=== PATIENT | male | born 1990 | race Two or more races ===

== ENCOUNTER 2018-10-12 09:57 | Inpatient (IN) | payer OTHER ==
[~2018-10-12] VITALS: Ht 165.1 cm; Wt 88.5 kg
[2018-10-12] VITALS (13 sets, daily range): BP systolic 112–136; BP diastolic 62–79
[~2018-10-12 09:57] MED LIST: ceFAZolin sod 2 GM in D5W 110 ML IVPB ONE
--- NOTE | 2018-10-12 10:44 | Pre-Procedure Note/Attestation ---
Pre-Procedure Note/Attestation Complete Prior to Procedure Planned Procedure: right Procedure Narrative: Right L5-S1 hemilaminotomy foraminotomy microdiscectomy Indications for Procedure Pre-Operative Diagnosis: L5s1 herniation Attestation I attest that I discussed the nature of the procedure; its benefits; risks and complications; and alternatives (and the risks and benefits of such alternatives ), prior to the procedure, with the patient (or the patient's legal premium service representative). I attest that, if there was a reasonable possibility of needing a blood transfusion, the patient (or the patient's legal premium service representative) was given the [facility] standardized written summary, pursuant to the Francisco Hosmer Blood Safety Act ([place] Health and Safety Code # 1645, as amended). I attest that I re-evaluated the patient just prior to the surgery and that there has been no change in the patient's H&P, except as documented below: Dionte Jo MD Oct 12, 2018 10:44
[2018-10-12] MEDS ORDERED: Metoclopramide 10mg/2ml Inj IVP PRN ×2 (10:45→14:45)
[2018-10-12] MEDS ORDERED: Chloraseptic Spray 20mL Bottle ORAL PRN (10:45)
[2018-10-12] MEDS ORDERED: Morphine Sulfate 4mg/ml Inj (IV USE ONLY) IV PRN (10:45)
[2018-10-12] MEDS ORDERED: HYDROcodone/Acetamin 5/325 tab ORAL PRN (10:45)
[2018-10-12] MEDS ORDERED: HYDROmorphone 1mg/ml Carpuject IVP PRN (10:45)
[2018-10-12] MEDS ORDERED: Naloxone 0.4mg/ml Inj IVP PRN (10:45)
[2018-10-12] MEDS ORDERED: Milk of Magnesia 30ml Ud ORAL PRN (10:45)
[2018-10-12] MEDS ORDERED: HYDROcodone/Acetamin 7.5/325 tab ORAL PRN ×2 (10:45)
[2018-10-12] MEDS ORDERED: Morphine Sulfate 2mg/ml Inj(IV/IM USE ONLY) IV PRN (10:45)
--- NOTE | 2018-10-12 10:45 | Brief Operative Note ---
Immediate Post Operative Note Operative Note Chief Complaint: back pain and radiculopathy right sided in an s1 distribution Pre-op Diagnosis: L5s1 herniation Procedure: Right L5-S1 hemilaminotomy foraminotomy microdiscectomy Post-op Diagnosis: same as pre-op Findings: consistent w/pre-op dx studies Surgeon: Sandro Finisher Merchant Products: Dakota Anesthesiologist: DOUG Anesthesia: general Specimen: none Complications: none Condition: stable Fluids: iv Estimated Blood Loss: minimal Drains: none Implant(s) used?: No Dionte Jo MD Oct 12, 2018 10:45
[2018-10-12] MEDS ORDERED: NKM (10:56)
[2018-10-12] MEDS ORDERED: fentaNYL 100 mcg/2 mL IV ONE (11:29)
[2018-10-12] MEDS ORDERED: Midazolam 2mg/2ml Inj ONE (11:29)
[2018-10-12] MEDS ORDERED: Lidocaine 1% MPF 10mg/ml 5ml ONE (11:31)
[2018-10-12] MEDS ORDERED: Ropivacaine 5mg/ml Vial 30ml INJ ONE ×2 (12:28→13:35)
[2018-10-12] MEDS ORDERED: Gelfoam Size TOPIC ONE (12:28)
[2018-10-12] MEDS ORDERED: Thrombin 5000 units TOPIC ONE ×2 (12:28→13:35)
[2018-10-12] MEDS ORDERED: Bupivacaine w/Epi 0.5% 30ml Vial INJ ONE (12:29)
[2018-10-12] MEDS ORDERED: Zemuron 50mg/5ml Inj IV ONE (12:29)
[2018-10-12] MEDS ORDERED: Bacitracin 50000 Units Vial ONE (12:29)
[2018-10-12] MEDS ORDERED: NS Irrig 1000ml ONE (13:30)
[2018-10-12] MEDS ORDERED: LR 1000ml ONE (13:30)
[2018-10-12] MEDS ORDERED: Neostigmine 1mg/ml 10ml Inj ONE (13:30)
[2018-10-12] MEDS ORDERED: Propofol 1,000mg/ 100ml btl IV ONE (13:30)
[2018-10-12] MEDS ORDERED: Sterile Water Irrig 1000ml IRRIG ONE (13:30)
[2018-10-12] MEDS ORDERED: NS Irrig 1000ml IRRIG ONE (13:35)
[2018-10-12] MEDS ORDERED: Morphine Sulfate 10mg/ml Inj ONE (14:31)
[2018-10-12] MEDS ORDERED: Sodium Chloride 10ml vial INJ ONE (14:32)
[2018-10-12] MEDS ORDERED: Glycopyrrolate 0.2mg/ml 1ml Vial ONE (14:32)
[2018-10-12] MEDS ORDERED: Ketorolac 30mg Inj ONE (14:32)
--- NOTE | 2018-10-12 14:42 | Anethesia Preoperative Eval ---
Anesthesia Pre-op PMH/ROS General Date of Evaluation: Oct 12, 2018 Time of Evaluation: 13:20 Anesthesiologist: Villa ASA Score: ASA 2 Mallampati Score Class I : Soft palate, uvula, fauces, pillars visible Class II: Soft palate, uvula, fauces visible Class III: Soft palate, base of uvula visible Class IV: Only hard plate visible Mallampati Classification: Class II Surgeon: Sandro Diagnosis: Lumbar radiculopathy Surgical Procedure: L5-S1 laminotomy Anesthesia History: none Family History: no anesthesia problems Allergies: Coded Allergies: No Known Allergies (Unverified , 10/12/18) Medications: see eMAR Patient NPO?: Yes NPO Date: Oct 11, 2018 NPO Time: 2100 Past Medical History Cardiovascular: Denies: HTN, CAD, NM, valve dz, arrhythmia, other Pulmonary: Denies: asthma, COPD, ELVIS, other Gastrointestinal/Genitourinary: Reports: GERD - mild; Denies: CRI, ESRD, other Neurologic/Psychiatric: Denies: dementia, CVA, depression/anxiety, TIA, other Endocrine: Denies: DM, hypothyroidism, steroids, other HEENT: Denies: cataract (L), cataract (R), glaucoma, [place] (L), [place] (R), other Hematology/Immune: Denies: anemia, DVT, bleeding disorder, other Musculoskeletal/Integumentary: Denies: OA, RA, DJD, DDD, edema, other Other: other - overweight PMH Narrative: as above PSxH Narrative: None Anesthesia Pre-op Phys. Exam Physician Exam Last Vital Signs Date Time Temp Pulse Resp B/P (MAP) Pulse Ox O2 Delivery O2 Flow Rate FiO2 10/12/18 11:01 Room Air 10/12/18 10:49 97.2 53 18 126/74 (91) 98 Constitutional: NAD Neurologic: CN 2-12 intact Cardiovascular: RRR, no M/R/G Respiratory: CTA Gastrointestinal: S/NT/ND Airway Exam Mallampati Score: Class II MO: full Neck: flexible ROM: full Teeth: intact Dentures: no upper, no lower Anesthesia Pre-op A/P Labs see chart Studies Pre-op Studies: EKG - NSR, CXR - WNL Risk Assessment & Plan Assessment: ASA 2 Plan: GA with ETT prone position neuromonitoring, PONV prevention Status Change Before Surgery: No Pre-Antibiotics Drug: Ancef 2gr. Given Within 1 Hr of Incision: Yes Time Given: 14:05 Fahad Driver MD Oct 12, 2018 14:42
[2018-10-12] MEDS ORDERED: LR 1000ml 1,000 ML IVLG SCH (14:43)
[2018-10-12] MEDS ORDERED: Meperidine 50mg/ml Inj(FOR RIGORS ONLY) IV PRN (14:45)
[2018-10-12] MEDS ORDERED: Acetaminophen (Non formulary) 100 ML IV ONE (14:45)
[2018-10-12] MEDS ORDERED: Hydromorphone 0.5mg/0.5ml inj IVP PRN (14:45)
[2018-10-12] MEDS ORDERED: Ketorolac 30mg Inj IV PRN (14:45)
[2018-10-12] MEDS ORDERED: DiphenhydrAMINE 50mg/ml Inj IVP PRN (14:45)
--- NOTE | 2018-10-12 15:38 | Immediate Post-Op Evaluation ---
Immediate Post-Op Evalulation Immediate Post-Op Evalulation Procedure: Laminotomy L5-S1 with decompression Date of Evaluation: Oct 12, 2018 Time of Evaluation: 15:37 IV Fluids: 1000 Blood Products: none Estimated Blood Loss: 50 Urinary Output: none Blood Pressure Systolic: 112 Blood Pressure Diastolic: 56 Pulse Rate: 64 Respiratory Rate: 20 O2 Sat by Pulse Oximetry: 99 Temperature (Fahrenheit): 97.5 Pain Score (1-10): 2 Nausea: No Vomiting: No Complications none Patient Status: reacts, patent, extubated, none Hydration Status: adequate Fahad Driver MD Oct 12, 2018 15:38
--- NOTE | 2018-10-12 16:48 | Diagnostic Imaging Report ---
. INDICATION: Pain, intraoperative TECHNIQUE: Intraoperative imaging Fluoroscopy time: 2.9 seconds Total dose: 0.46709 mGym2 Total number of images: One COMPARISON: None FINDINGS: Single lateral images demonstrate surgical tool projected over what are presumably L5 and the upper sacrum. IMPRESSION: Intraoperative imaging, as described
--- NOTE | 2018-10-12 17:25 | NUR ---
NURSE NOTES:RECEIVED FR.PACU BY BED S/PL5-[id number],FORAMINOTOMY,MICRODISCECTOMY,/OX4,MOVING ALL EXTREMITIES,BACK DRSNG,C/D/I.ICE PACK ON.O2 AT 3 LTERS N/C .PAIN LEVEL 3/10(WAS JUST MEDICATED PRIOR TO COMING TO FLOOR)PLAN OF CARE DISCUSSED VERBALIZED UNDERSTANDING.
[2018-10-12] MEDS: Docusate 100mg cap ORAL SCH (18:00)
[2018-10-12] MEDS: Dexamethasone 4mg/ml vial IVP SCH ×2 (18:21→23:24)
[2018-10-12] MEDS: NS w/KCl 20mEq 1,000 ML IV SCH (18:21)
--- NOTE | 2018-10-12 19:15 | NUR ---
HAND-OFF: Report given to ODELL ZUNIGA.PATIENT STABLE.
--- NOTE | 2018-10-12 19:26 | Cardiology Progress Note ---
Assessment/Plan Assessment/Plan doing well dvt ppx IS ambualte home soon [id number] Objective Last 24 Hour Vital Signs Date Time Temp Pulse Resp B/P (MAP) Pulse Ox O2 Delivery O2 Flow Rate FiO2 10/12/18 18:40 98.0 20 132/79 (96) 99 10/12/18 17:40 98.7 57 136/70 (92) 99 10/12/18 17:25 Nasal Cannula 3.0 10/12/18 17:10 97.7 57 129/74 (92) 99 10/12/18 16:55 97.5 59 18 126/75 100 Nasal Cannula 3 10/12/18 16:40 98.4 59 18 128/79 (95) 100 10/12/18 16:40 53 15 125/74 100 Nasal Cannula 3 10/12/18 16:25 55 14 127/77 100 Nasal Cannula 3 10/12/18 16:10 64 19 123/63 100 Nasal Cannula 3 10/12/18 16:00 66 15 125/69 100 Nasal Cannula 3 10/12/18 15:50 61 17 126/65 100 Simple Mask 6 10/12/18 15:40 64 15 117/67 100 Simple Mask 6 10/12/18 15:38 64 20 99 10/12/18 15:34 97.3 62 20 112/62 100 Simple Mask 6 10/12/18 11:01 Room Air 10/12/18 10:49 97.2 53 18 126/74 (91) 98 Robert Patel MD Oct 12, 2018 19:26
--- NOTE | 2018-10-12 20:00 | NUR ---
NURSE NOTES: Received patient in bed, Dx of Herniated nucleus pulposus, s/p surgery. On O2 3L via N/C, no SOB, no acute distress, denies acute pain. LH 20G IV intact, patent running fluids. Dressing dry, intact on surgical site. Bed in lowest position, locked alarms on. Call light in reach. Family by bedside.
[2018-10-12] MEDS: Morphine Sulfate 4mg/ml Inj (IV USE ONLY) IV PRN (21:59)
[2018-10-12] MEDS: ceFAZolin sod 1 GM in D5W 55 ML IV SCH (21:59)
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
[2018-10-13] VITALS: BP 97/50
[2018-10-13] MEDS: NS w/KCl 20mEq 1,000 ML IV SCH (03:30)
[2018-10-13] MEDS: Morphine Sulfate 4mg/ml Inj (IV USE ONLY) IV PRN (03:44)
[2018-10-13 04:00] VITALS: BP 109/61
[2018-10-13] MEDS: ceFAZolin sod 1 GM in D5W 55 ML IV SCH (05:18)
[2018-10-13] MEDS: Dexamethasone 4mg/ml vial IVP SCH (05:18)
--- NOTE | 2018-10-13 07:45 | NUR ---
HAND-OFF: Report given to Esdras ZUNIGA.
[2018-10-13 08:00] VITALS: BP 119/56
--- NOTE | 2018-10-13 08:00 | NUR ---
NURSE NOTES: Received patient on bed, awake with family member at bedside. IV site intact and patent. Bed in low and locked position, call light in reach. Dressing dry and intact. No signs of respiratory distress, patient reports mild pain. Room board updated, will continue to monitor.
[2018-10-13] MEDS: Docusate 100mg cap ORAL SCH (09:03)
--- NOTE | 2018-10-13 09:20 | 48 Hour Post Anesthesia Eval ---
Post Anesthesia Evaluation Procedure: Laminotomy L5-S1 with decompression Date of Evaluation: Oct 13, 2018 Time of Evaluation: 09:20 Nausea: No Vomiting: No Radha El MD Oct 13, 2018 09:20
--- NOTE | 2018-10-13 11:30 | NUR ---
NURSE NOTES: Patient is discharged. IV removed and site covered. ID band removed and disposed of. Personal belongings inventoried and sent with patient. Patient needs met and pateient kept comfortable at all times. Departed in private vehicle.
--- NOTE | 2018-10-13 16:14 | NUR ---
P.T NOTE: LATE ENTRY 4698 P.T EVALUATION COMPLETED AND TX PROVIDED PER SPINAL PROTOCOL. PLEASE REFER TO P.T EVALUATION FOR CURRENT FUNCTIONAL STATUS.
--- NOTE | 2018-10-13 16:14 | NUR ---
Rush T NOTE: P.T EVALUATION COMPLETED AND TX PROVIDED PER SPINAL PROTOCOL. PLEASE REFER TO P.T EVALUATION FOR CURRENT FUNCTIONAL STATUS. Addendum: 10/13/18 at 1615 by PEPPER VALDEZ PT Amended: Links added.
--- NOTE | 2018-10-13 19:15 | Operative Note - Dictated ---
DATE OF OPERATION: 10/12/2018 SURGEON: Dionte Jo M.D., Orthopaedic Spine Surgeon. DIRECTORY COMPILER SURGEON: HOA Jones. ANESTHESIA: General endotracheal anesthesia. PREOPERATIVE DIAGNOSES: 1. Intractable back pain. 2. Intractable leg pain. 3. Worsening radiculopathy. 4. Weakness. 5. Herniated nucleus pulposus, L5-S1 herniation. 6. Neural foraminal stenosis, L5-S1. POSTOPERATIVE DIAGNOSES: 1. Intractable back pain. 2. Intractable leg pain. 3. Worsening radiculopathy. 4. Weakness. 5. Herniated nucleus pulposus, L5-S1 herniation. 6. Neural foraminal stenosis, L5-S1. PROCEDURES PERFORMED: 1. Right-sided L5-S1 microdiscectomy. 2. L5-S1 hemilaminotomy, foraminotomy, and medial facetectomy. 3. L5-S1 neural foraminotomy 4. Use of intraoperative microscope. 5. Supervision and interpretation of intraoperative fluoroscopy. 6. Supervision and interpretation of somatosensory-evoked potential and free running EMG monitoring. ESTIMATED BLOOD LOSS: Less than 100 mL. COMPLICATIONS: None. INDICATIONS FOR THE PROCEDURE: The patient presents for intractable back pain and radiculopathy. The patient tried and failed a prolonged course of conservative management, including but not limited to chiropractic therapy, physical therapy, nonsteroidal anti-inflammatory drugs, medication, ice packs as well as epidural injection. Despite these therapies, the patient still developed recalcitrant pain and elected for definitive management in the form of right-sided L5-S1 microdiscectomy, L5-S1 hemilaminotomy, foraminotomy and medial facetectomy, and L5-S1 neural foraminotomy through a transpedicular intraforaminal approach. CONSENT: We had a long discussion with the patient regarding definitive surgical treatment options. The patient's MRI demonstrated herniated nucleus pulposus, L5-S1 herniation and neural foraminal stenosis, L5-S1, and as a result, I felt the patient would benefit from the discectomy as well as neural foraminotomy at this level. We had a long discussion with the patient regarding the risks, alternatives, and benefits of surgery. Our description of the risks included a discussion in person as well as a signed consent, which detailed all pertinent risks and the procedure itself. Briefly, our discussion included but was not limited to infection, bleeding, pseudarthrosis, spinal cord injury, neurovascular injury, dural tear, CSF leak, neuropathy, paralysis, permanent weakness/drop foot, paresthesias blindness, palsy and weakness. The patient understood there may be a need for revision surgery or additional procedures. Approach related complications including dysphonia, dysphagia, blindness, permanent vocal cord and neural injury, hematoma, swallowing and breathing difficulty. Medical complications including liver, kidney, shock, and cardiopulmonary failure. Anesthesia complications including , swelling, damage to the musculature, larynx (voice injury or loss),esophagus (throat), trachea, blood vessels and muscles (muscular sprain) and lungs (pneumothorax) during this surgical procedure. Injury to deeper structures may be temporary or permanent. The patient understood these and elected to proceed. A written and verbal consent was given. We discussed the pros and cons of all the alternatives. We discussed the uncertainties associated with the decision. Afterwards I assessed the patients understanding and explored their preferences. All questions were answered and no guarantees were given. Medical clearance was obtained prior to surgery INTRAOPERATIVE FINDINGS: A large disc herniation at L5-S1, which had torn through the posterior and longitudinal ligament and was encroaching on the thecal sac and neural foramina at L5-S1, which was interesting to note because it was larger than noticed on the MRI. This herniation was acute in nature in that it was not calcified whatsoever, mobile, free flowing almost like a sequestered fragment. DESCRIPTION OF PROCEDURE: Under the benefit of general endotracheal anesthesia and with the assistance of the entire operative team, the patient was moved from the [place] onto the operative table in the prone position on a Osorio frame. The head was secured and positioned appropriately. Bilateral arms were secured with Gel Pads and foam and all bony prominences were padded. The bilateral lower extremity SCD and RIKA hose were placed for DVT prophylaxis. A surgical timeout was called, which corroborated our planned procedure. Preoperative antibiotics were administered within 30 minutes of the incision for prophylaxis. Decadron was given for preoperative steroids. Using lateral radiography, the operative levels were delineated. An incision was marked based on our interpretation of lateral radiography and afterwards the body was prepped and draped in the usual sterile manner. The family was notified that we were ready to commence surgery and were called in the waiting room hourly for updates An incision was based on our lateral fluoroscopic image to center the incision at the L5-S1 interspace. The wound was prepped and draped in the usual sterile fashion. Using a scalpel, a midline incision was taken down through the skin and subcutaneous tissues until the overlying hemilaminae of L5-S1 were visualized. Next, using meticulous hemostasis, hemilamotomies were dissected and retractors were placed. Using a Preble dental, we confirmed placement at the L5-S1 interspace. We next turned our attention to our decompression. A standard hemilaminotomy, foraminotomy, and medial facetectomy was performed at each level in standard fashion using a Midas-Mehul type AM8 drill bit, straight and angled curettage, and Kerrison 4 rongeurs until the lateral thecal sac margin and traversing nerve root was visualized. All remainders of the ligamentum flavum and lateral bony margins were resected in total with angled curettage and Kerrison 4 rongeurs until the lateral thecal sac margin and traversing nerve root was visualized and decompressed. We next turned our attention toward our L5-S1 microdiscectomy on the right side. A Plaza 4 was used to gently mobilize the thecal sac medially and this was held retracted with a nerve root retractor. It was at this point that we noted a large broad-based disc protrusion with encroachment dorsally on the thecal sac neural foraminal contents. A nerve root retractor was then placed carefully to retract the thecal sac and a discectomy was performed using a combination of a long handled 15 blade scalpel, downgoing and straight pituitaries and downgoing curettage. Afterward the disc space was irrigated twice with 20 mL of antibiotic-impregnated saline. All loose and free-floating disc fragments were carefully resected with a narrow pituitary. Having been satisfied with our decompression after our discectomy of all neural elements, we next turned our attention to our neural foraminoplasty/foraminotomy. This was performed through a transpedicular intraforaminal approach using an access probe followed by a neuro-check device, which confirmed ventral placement of our nerve root. Once we confirmed we were safe, we next turned our attention towards placement of our size 10 file under direct microscopic visualization and under lateral fluoroscopy. Using pre and post reciprocation imaging, we were able to visualize our direct decompression given the reciprocation allowed for re-creation of the neural foraminal arch at L5-S1. Afterwards, hemostasis was obtained with 60 mL of antibiotic-impregnated saline followed by FloSeal and Gelfoam. After sponge and needle count were found to be correct, we next turned our attention to closure. Closure consisted of 1-0 Vicryl in standard interrupted fashion. Zosyn was placed deep to the fascia and superficial to the fascia for antibiotic prophylaxis. Skin closure was performed with 2-0 Vicryl in interrupted fashion followed by a running Monocryl for the skin. Final dressings consisted of Dermabond for the superficial skin, Telfa, and Tegaderm. The patient tolerated the procedure well. The patient was extubated after the conclusion of surgery without incident. We discussed the findings of the surgery with the family upon completion of the case. At this point, the patient will be transferred to the spine floor for further observation. Dionte Jo M.D. DR: SAMMI JOB#: [id number] CC: GHAZALA
--- NOTE | 2018-10-13 21:00 | Discharge Summary ---
DATE OF ADMISSION: 10/12/2018 DATE OF DISCHARGE: 10/13/2018 DATE OF ADMISSION: 10/12/2018 DATE OF DISCHARGE: 10/13/2018 PROCEDURE PERFORMED DURING ADMISSION: L5-S1 microdiscectomy. REASON FOR ADMISSION: L5-S1 disk herniation. HOSPITAL COURSE/TREATMENT RENDERED: . DISCHARGE PHYSICAL EXAM: 1. Patient was ambulating with and without the assistance of physical therapy. 2. Prior to discharge home incision was clean and dry with minimal swelling. 3. Follows commands. 4. Alert and oriented. 5. Benavides discontinued, voiding. 6. Incentive spirometer at bedside. 7. IVF hep locked. MOTOR: Demonstrates expected postoperative bulk and tone. Moves biceps, triceps, and deltoid musculature on command. Moves hip flexors, quadriceps, tibialis anterior, EHL, gastrocsoleus musculature on command as well. TREATMENT RENDERED: 1. Daily nursing care. 2. Physical Therapy. 3. Occupational Therapy. 4. Intravenous medications. 5. Oral medications. 6. Daily postoperative examinations by Spine surgery team. CONDITION OF PATIENT ON DISCHARGE: The condition on discharge is stable for discharge to home. DISCHARGE INSTRUCTIONS: Our specific instructions relating to physical activity, medications diet and follow-up care are detailed in our standard operative folder and were given to this patient prior to surgery. We will however summarize these briefly as stated below. Regarding physical activity we would like the patient to limit their flexion, extension and rotation. We also require a limitation on their bending lifting and twisting. All medication has been called in prior to surgery to their pharmacy of choice. They can resume their regular diet once tolerated. We would like them to shower and limit soaking the wound in a tub/Jacuzzi/the ocean for a period of one month or until the incision is completely healed. We will have them follow up in our office in three weeks time for their regularly scheduled appointment. They understand to call our office tomorrow to schedule the time for their three week followup appointment. The patient will notify us should they experience any increase in the severity of pain, redness/swelling/or drainage from their incision. Dionte Jo M.D. DR: Yamileth JOB#: [id number] CC:
== END 2018-10-13 11:45 | disposition home or self-care (01) | DRG 520 ==
LOC: SDSOVERFLO 09:57 → 3E 16:11
PROC: 0SB40ZZ Excision of Lumbosacral Disc, Open Approach (ICD-10-PCS; 2018-10-12)
PROC: 01NB0ZZ Release Lumbar Nerve, Open Approach (ICD-10-PCS; principal; 2018-10-12 13:00)
DX: M51.17 Intervertebral disc disorders with radiculopathy, lumbosacral region (principal); M48.07 Spinal stenosis, lumbosacral region; V89.2XXS Person injured in unspecified motor-vehicle accident, traffic, sequela; E66.9 Obesity, unspecified
CPT/HCPCS: 36415; 72020; 76000; 86850; 86900; 86901; 87081; 94003; 94150; J2250; J2405; J2710